=== PATIENT | male | born 1955 | race Caucasian/White ===

== ENCOUNTER 2020-09-13 10:52 | Outpatient (CLI) | payer MEDICARE, SELFPAY ==
--- NOTE | ~2020-09-13 | US_ITS ---
EXAMINATION: US carotid duplex BI DATE: 09/13/2020 11:57 INDICATION: Infarct in left internal capsule. Left arm tingling. TECHNIQUE: Grayscale, color Doppler, and pulsed Doppler images of the cervical carotid arteries were obtained. The degree of vessel stenosis is placed in one of the following categories: normal, <50%, 5 0-69%, >=70% but less than near-occlusion, near-occlusion, or total occlusion. Note that percent sten osis relative to normal distal artery lumen diameter is indirectly measured from velocity measurement s as described by Thor, et al. Radiology 2003; 229:340-346. COMPARISON: Ultrasound 05/02/2016 FINDINGS: RIGHT: The right common carotid artery (CCA) peak systolic velocity (PSV) is 98 cm/s. The right internal car otid artery (ICA) PSV is 64 cm/s. The right ICA end-diastolic velocity (EDV) is 23 cm/s. The right IC A/CCA PSV ratio is 0.7. Grayscale and color Doppler images yield an estimate of <50% diameter reducti on from plaque in the ICA. There is antegrade flow in the right vertebral artery. LEFT: The left CCA PSV is 92 cm/s. The left ICA PSV is 73 cm/s. The left ICA EDV is 22 cm/s. The left ICA/C CA PSV ratio is 0.8. Grayscale and color Doppler images yield an estimate of <50% diameter reduction from plaque in the ICA. There is antegrade flow in the left vertebral artery. IMPRESSION: 1. <50% stenosis in the right internal carotid artery. 2. <50% stenosis in the left internal carotid artery. Reviewed, dictated and finalized at location A. PRODUCTION WORKER
== END 2020-09-13 10:53 | disposition home or self-care (01) ==
PROVIDERS: PCP Family Medicine; Visit Provider Family Medicine
DX: R20.2 Paresthesia of skin (principal); I65.23 Occlusion and stenosis of bilateral carotid arteries
CPT/HCPCS: 93880

== ENCOUNTER 2023-04-09 03:23 | Day surgery (SDC) | payer MEDICARE, SELFPAY ==
[2023-03-30 09:09] VITALS: BMI 25.9
[2023-04-09 12:09] VITALS: BP 131/68; PULSE 58; RESP 16; TEMP 36.2; O2SAT 99
[2023-04-09] MEDS: LACTATED RINGERS 1,000 ML 150 ML IV CONT (12:18)
--- NOTE | 2023-04-09 12:26 | P.HP_ITS ---
History of Present Illness History of Present Illness Consent: Risks, benefits, and alternatives have been discussed and questions answered. Patient agrees to proceed with procedure. Chief complaint: neoplasm screening Narrative: Will Freedman is a 68 year old male Hepresents for screening colonoscopy. Patient's current weight appetite and bowel movements are normal. Patient denies abdominal pain. He has had no bleeding. Family history noncontributory. patient has been more than 10 years since screening colonoscopy. He presents today for evaluation. He does have a history of a CVA for which she is improved a great deal. Review of Systems Review of Systems: Review of systems noncontributory. PENDING SALE TO [facility] Past Medical History Medical History (Updated 04/09/23 @ 12:27 by Ramsey Montana MD) Aphasia, late effect of cerebrovascular disease Male erectile dysfunction, unspecified Occlusion and stenosis of bilateral carotid arteries Pure hypercholesterolemia, unspecified Social History Social History (Updated 12/24/22 @ 09:50 by Jennie Hammonds MA) Smoking status: Former smoker Tobacco type: cigarettes Alcohol intake: current Alcohol use details: occasional Substance use: never Substance use type: does not use Lack of Transportation: No Lack of Food: Never True Current Housing: I Have Housing Concerned About Future Housing: No Difficulty Paying Gas/Electric Bills: No Difficulty Paying for Meds: No Currently Unemployed: YES Education: Associate Degree Living arrangements: with family Occupation/Education: retired Gender identity (if verbalized by the patient): Male Sexual Orientation (if Verbalized by the Patient): Straight or Heterosexual Spiritual care concerns: No Meds Home Medications and Allergies Home Medications Medication Instructions Recorded Confirmed Type aspirin 81 mg tablet,delayed 81 mg PO DAILY 12/24/22 03/30/23 History release sildenafil 100 mg tablet 100 mg PO .COMPLEX 12/24/22 03/30/23 History atorvastatin 40 mg tablet 40 mg PO DAILY #90 tabs 01/13/23 03/30/23 Rx Allergies Allergy/AdvReac Type Severity Reaction Status Date / Time No Known Allergies Allergy Unknown Verified 04/09/23 12:04 Vital Signs Vital Signs - 24 hr 04/09/23 12:09 Temperature 97.2 F L Pulse Rate 58 L Respiratory Rate 16 Blood Pressure 131/68 Pulse Oximetry 99 Oxygen Delivery Room Air Exam Narrative: Physical exam reveals patient to be alert. Vital signs stable. HEENT exam is unremarkable. Patient is anicteric. Lungs are clear to auscultation and percussion. Heart is without murmur or extra sounds. Abdomen bowel sounds are present soft nontender with no organomegaly. Digital external rectal exam normal. Assessment and Plan Assessment and plan (1) Encounter for screening colonoscopy: Code(s): Z12.11 - Encounter for screening for malignant neoplasm of colon Status: Acute Assessment and Plan: Patient presents today for screening colonoscopy. Appears to be at average risk for colon polyps. Further recommendations may be given after endoscopy.
[2023-04-09] MEDS: SIMETHICONE ORAL SUSPENSION 20 MG/0.3 ML 30 ML BOTTLE 0.6 ML IRRIGATION (13:14)
[2023-04-09 13:22] VITALS: BP 105/59; PULSE 56; RESP 22; O2SAT 95
[2023-04-09 13:32] VITALS: BP 116/67; PULSE 56; RESP 22; O2SAT 100
[2023-04-09 13:42] VITALS: BP 117/70; PULSE 58; RESP 19; O2SAT 100
[2023-04-09 13:52] VITALS: BP 123/78; PULSE 53; RESP 19; O2SAT 99
== END 2023-04-09 14:04 | disposition home or self-care (01) ==
PROVIDERS: PCP Family Medicine; Visit Provider Internal Medicine Gastroenterology
PROC: 0DJD8ZZ Inspection of Lower Intestinal Tract, Via Natural or Artificial Opening Endoscopic (ICD-10-PCS; CPT 45378; principal; 2023-04-09 13:30)
DX: Z12.11 Encounter for screening for malignant neoplasm of colon (principal); D12.0 Benign neoplasm of cecum; D12.5 Benign neoplasm of sigmoid colon; K57.30 Diverticulosis of large intestine without perforation or abscess without bleeding; K64.8 Other hemorrhoids; I69.320 Aphasia following cerebral infarction; E78.00 Pure hypercholesterolemia, unspecified; Z87.891 Personal history of nicotine dependence; Z79.82 Long term (current) use of aspirin
CPT/HCPCS: 45385; 88305; J2704; J7120

== ENCOUNTER 2023-12-11 09:52 | Outpatient (CLI) | payer MEDICARE, SELFPAY | END 2023-12-11 09:53 | disposition home or self-care (01) | LOC: ANHAUDIO 09:55 | PROVIDERS: PCP Family Medicine; Visit Provider Family Medicine | DX: H90.3 Sensorineural hearing loss, bilateral (principal) | CPT/HCPCS: 92557; 92567 ==

== ENCOUNTER 2024-02-25 13:36 | Outpatient (CLI) | payer MEDICARE, SELFPAY ==
--- NOTE | ~2024-02-25 | US_ITS ---
Right shoulder area ULTRASOUND Ordering provider: Uriel Velasquez MD History: . R22.2 - Localized swelling, mass and lump, trunk . Comparison: None. FINDINGS/impression: Slightly echogenic/isoechoic area is seen in the right shoulder posteriorly which measures 1.7 x 0.8 x 1.4 cm which is most likely normal tissue. Follow-up advised.. An area in the posterior neck also shows complex echogenicity area with posterior enhancement which m easures 1.4 x 0.8 x 1.4 cm which may represent a lymph node or complex cyst. A lipoma is less likely. Follow-up and further evaluation advised. Reviewed, dictated and finalized at location A.
== END 2024-02-25 13:37 | disposition home or self-care (01) ==
LOC: ANHIMG 13:36
PROVIDERS: PCP Family Medicine; Visit Provider Family Medicine
DX: R22.2 Localized swelling, mass and lump, trunk (principal)
CPT/HCPCS: 76604

== ENCOUNTER 2024-04-01 12:12 | Outpatient (CLI) | payer MEDICARE, SELFPAY ==
--- NOTE | 2024-04-01 12:23 | ECG_ITS ---
Test Date: 2024-04-01 12:27:45 Measurements Intervals [place] Rate: 45 P: 57 WA: 179 QRS: 10 QRSD: 117 T: 21 QT: 417 QTc: 362 Interpretive Statements SINUS BRADYCARDIA POSSIBLE LEFT ATRIAL ENLARGEMENT [-0.1mV P WAVE IN V1/V2] MODERATE INTRAVENTRICULAR CONDUCTION DELAY [110+ ms QRS DURATION] No previous ECG available for comparison Electronically Signed On 04-02-2024 14:23:59 CDT by Valentin Conroy M.D.
== END 2024-04-01 12:13 | disposition home or self-care (01) ==
PROVIDERS: PCP Family Medicine; Visit Provider Surgery
DX: Z01.818 Encounter for other preprocedural examination (principal); E78.00 Pure hypercholesterolemia, unspecified; R00.1 Bradycardia, unspecified
CPT/HCPCS: 93005

== ENCOUNTER 2024-04-06 02:06 | Day surgery (SDC) | payer MEDICARE, SELFPAY ==
[2024-04-01 09:46] VITALS: BMI 27.3
--- NOTE | 2024-04-01 10:04 | PC.NURSE ---
Report to the Outpatient Waiting Room, entrance under the green pavilion located off [facility], at time _11:30AM_ on date __04/06/24_. Planned Procedure Time: ___1:30PM .? Time changes happen often and if your time is changed the preop area will call you the afternoon before. - You and your visitor will be asked to self-screen and do not enter if you have any COVID symptoms. Please call surgeon if you need to reschedule. - A mask is optional within the hospital at this time. Patients may have clear liquids (water, carbonated beverages, clear teas, apple juice) until 3 hours prior to surgery with a maximum of 20 ounces. - No food from midnight until time of surgery and no smoking. Take only the following medications with a SIP of water on the morning of surgery: NONE DO NOT STOP ANY OF YOUR OTHER PRESCRIPTION MEDICATIONS PRIOR TO SURGERY EXCEPT THE FOLLOWING Medications to discontinue per physician ____HOLD ALL VITAMINS/SUPPLEMENTS 3 DAYS PRE-OP PER ANESTHESIA Date to take last dose 04/02/24 Please no make-up, nail prydeinig, hairspray, perfume, deodorant, or body powder the day of surgery.? No jewelry (including any body piercings) or valuables the day of surgery, leave them at home.? Please take a shower or bath the night before, or the morning of, surgery with an antibacterial soap.? Wear comfortable, loose fitting clothing.? - Jewelry must be removed prior to entering the operating room.? Rings and piercings that are not removed may be cut off. - The hospital will not accept responsibility for valuables.? - Please leave all valuables, including medications, at home the day of surgery. If you are going home after surgery, a licensed otr owner operator truck driver must drive you home.? - NO public transportation without another adult if you receive anesthesia. - We recommend that an adult stay with you for 24 hours following discharge. - We also recommend that you do not drive, make important decision, drink alcoholic beverages, or take any drugs that were not prescribed by your health care provider for at least 24 hours after your discharge time. Follow any additional instructions given to you from your surgeon. Telephone instructions given to ____PATIENT and asked if any additional questions and then verbalized understanding. Patient advised to call surgeon office or pre surgery nurse liaison [phone] if any additional questions.
[2024-04-06] VITALS (7 sets, daily range): BP systolic 104–142; BP diastolic 58–75; PULSE 48–80; RESP 16–20; TEMP 36.2; O2SAT 99–100
--- NOTE | 2024-04-06 09:46 | WPDHPUPDATE1 ---
History and Physical Update Update Date/Time: 04/06/24 09:46 History and Physical has been reviewed, including an updated exam of the patient. There are NO changes in the patient's condition. Risks, benefits, and alternatives have been discussed and questions answered. Patient agrees to proceed with procedure.
[2024-04-06] MEDS: LACTATED RINGERS 1,000 ML 30 ML IV CONT (11:20)
--- NOTE | 2024-04-06 12:22 | WPDANESEPPF ---
Anes - Initial Pre Proc Eval Procedure: Operation Date: 04/06/24 13:30 Proposed Procedures p Excisional Biopsy of Posterior Neck Mass and Right Posterior Shoulder Mass - Heike Ramirez MD Date/Time: 04/06/24 12:22 Surgeon: Heike Ramirez MD Pre Op Diagnosis: posterior neck mass and rt shoulder mass Patient Data Age: 69 Gender: M Height: 1.75 m Weight: 84.75 kg Last Vital Signs Temp 36.2 C L 04/06/24 10:57 Pulse 48 L 04/06/24 10:57 Resp 18 04/06/24 10:57 BP 127/74 04/06/24 10:57 Pulse Ox 99 04/06/24 10:57 O2 Del Method Room Air 04/06/24 10:57 Allergies Allergy/AdvReac Type Severity Reaction Status Date / Time No Known Allergies Allergy Unknown Verified 04/01/24 09:43 Home Medications Medication Instructions Recorded Confirmed Type aspirin 81 mg tablet,delayed 81 mg PO DAILY 12/24/22 04/01/24 History release sildenafil 100 mg tablet 100 mg PO .COMPLEX PRN Sexual 12/24/22 04/01/24 History Activity magnesium 250 mg tablet 250 mg PO DAILY 06/04/23 04/01/24 History atorvastatin 40 mg tablet See Rx Instructions .Route 03/24/24 04/01/24 Rx .COMPLEX #90 tabs Patient hx anesthesia problems: none Family hx anesthesia problems: none Results Review: All pre-operative results and documents have been reviewed as part of the pre-operative evaluation. [facility] Past Medical History Medical History Aphasia, late effect of cerebrovascular disease Male erectile dysfunction, unspecified Occlusion and stenosis of bilateral carotid arteries Personal history of colonic polyps Pure hypercholesterolemia, unspecified Surgical History Surgical History History of appendectomy 2008 History of facial surgery facial fracture repair 2010 Family History Family History Father No problems noted. Mother Breast cancer Heart disease Social History Social History Smoking status: Former smoker Tobacco type: cigarettes Alcohol intake: current Drinks per week: 2 Alcohol use details: occasional Substance use: never Substance use type: does not use Do You Feel Safe in your Home?: Yes Lack of Transportation: No Lack of Food: Never True Current Housing: I Have Housing Concerned About Future Housing: No Difficulty Paying Gas/Electric Bills: No Difficulty Paying for Meds: No Currently Unemployed: YES Education: Associate Degree Living arrangements: with family Additional living arrangements comments: Occupation/Education: retired Gender identity (if verbalized by the patient): Male Sexual Orientation (if Verbalized by the Patient): Straight or Heterosexual Spiritual care concerns: No Anes - Eval Final PreProcedure Day of Procedure 04/06/24 12:22 Patient weight: overweight Heart: regular rate and rhythm Lungs: clear to auscultation Airway: Mallampati scale class II Neurological: alert and oriented Last oral intake: >/= 8 hours ASA classification: III Emergent: no Anesthetic plan: proceed Anesthesia type and monitoring: general LMA and standard monitoring Results Review: All pre-operative results and documents have been reviewed as part of the pre-operative evaluation. Informed Consent: The patient's anesthetic plan and its attendant risks and benefits were discussed with the patient/family/POA. Questions were solicited and answers provided to the satisfaction of the patient/family/POA.
[2024-04-06] MEDS: ceFAZolin 2 GM/D5W 50 ML 2 GM/50 ML BAG IVPB (13:18)
--- NOTE | 2024-04-06 13:56 | P.OP_ITS ---
Procedure Note - Detailed Date of Procedure 04/06/24 Pre-op Diagnosis posterior neck mass and rt shoulder mass Post-op Diagnosis Same Procedure Performed excisional biopsy posterior neck cystic mass measuring 3 x 2 cm, excisional biopsy right posterior shoulder measuring 5 x 3 cm Surgeon Heike Ramirez MD Anesthesia MAC and Local Indications The patient is old male presenting to the office with a posterior neck cystic mass. This mass has been infected in the past and the patient would like excision at this time. The patient also notes a growing subcutaneous mass in his right posterior shoulder. Findings Cystic mass in the posterior neck measuring 3 x 2 cm most consistent with sebaceous cyst, right posterior shoulder subcutaneous mass measuring 5 x 3 cm most consistent with lipoma Description of Procedure The patient was taken the operating room placed in the lateral position. After adequate induction of MAC anesthesia, the patient was prepped and draped in the normal sterile fashion. A time-out was then done to verify the patient's identity, as well as the procedure being performed. Began by localizing these 2 areas in the right posterior shoulder and posterior neck. Once locally anesth etized, I made an incision over the mass in the right posterior shoulder. This was carried down through the dermis into the subcutaneous tissue. At this point, a subtle multilobular lipoma was noted in the subcutaneous tissue. The posterior extent of this did go on top of the fascia however did not extend into the fascia muscle. I then was able to excise this mass in full. The mass was noted to measure approximately 5 x 3 cm. The mass will be sent to pathology for further review. I then gained hemostasis with the Bovie cautery. The cavity was washed out. I then closed the subcutaneous tissue with 3-0 Vicryl suture. The skin was closed with 4-0 Monocryl subcuticular suture. Dermabond was placed on the wound. I then made an elliptical incision around the posterior neck cystic mass. This was carried down through the dermis and into the subcutaneous tissue. A well-circumscribed sebaceous cyst was noted at this point. There was noted to be an area of perforation that was extruding some sebaceous material. I was able to excise this mass in full. It will once again be sent to pathology for further review. The mass measured 3 x 2 cm. I then copiously irrigated the cavity and hemostasis was once again gained with the Bovie cautery. I then closed the incision with interrupted 3-0 nylon vertical mattress sutures. Sterile dressing was then placed. The patient tolerated these procedures well and was alert and awake in the operating room postoperatively. He will be transferred to the recovery room in stable condition. Estimated Blood Loss 10 Drains No Packing No Pathology Yes Complications No immediate complications Condition Stable Disposition PACU [facility] Billing Surgery - Charge Forward: Surgery Billing
[2024-04-06] MEDS: BUPIVACAINE/EPINEPHRINE 0.5% 10 ML VIAL 30 ML INFILTRATE (14:12)
--- NOTE | 2024-04-06 15:25 | SUR.PHASEII ---
1515 - BERNARD Tom assessing pt's incision site. pressure dressing applied as instructed. pt tolerating well
--- NOTE | 2024-04-06 16:02 | SUR.PHASEII ---
1545 - BERNARD Tom reassessing pt's incision site.
== END 2024-04-06 16:20 | disposition home or self-care (01) ==
PROVIDERS: PCP Family Medicine; Visit Provider Surgery
PROC: (CPT 24071; principal; 2024-04-06 13:30)
DX: L72.0 Epidermal cyst (principal); D17.21 Benign lipomatous neoplasm of skin and subcutaneous tissue of right arm; E78.00 Pure hypercholesterolemia, unspecified; Z79.82 Long term (current) use of aspirin; Z87.891 Personal history of nicotine dependence
CPT/HCPCS: 24071; 11426; 88304; A9270; J0690; J1100; J2250; J2405; J2704; J3010; J7120

== ENCOUNTER 2024-07-08 15:13 | Outpatient (CLI) | payer MEDICARE, SELFPAY ==
--- NOTE | ~2024-07-08 | CT_ITS ---
EXAMINATION: CT abdomen pelvis wo con DATE: 07/08/2024 15:34 INDICATION: Lower abdominal pain, unspecified. TECHNIQUE: Computed tomography (CT) of the abdomen and pelvis was performed without intravenous contr ast. Automated exposure control and iterative reconstruction technique were employed. The dose-length product was 588.47 mGy-cm. COMPARISON: CT abdomen and pelvis 06/08/2021 FINDINGS: The visualized portions of the lung bases are clear without pneumonia or pleural effusion. The heart size is normal. No pericardial effusion. There are cysts in the liver measuring up to 8 mm. The gallbladder, spleen, pancreas, and adrenal glands are normal. There are cysts in the kidneys bobo suring up to 3.2 cm on the right. There is a 2 mm cyst in right kidney. The prostate is mildly enlarg ed. There is diverticulosis of the colon without evidence of diverticulitis. There are no dilated loo ps of bowel. The appendix is normal. There are no pathologically enlarged lymph nodes. There is no fr ee intraperitoneal fluid. There is severe thoracic and lumbar spondylosis. Thoracolumbar levocurvatur e is noted. IMPRESSION: 1. No etiology for the patient's symptoms. Reviewed, dictated and finalized at location A. ROUNDER
== END 2024-07-08 15:14 | disposition home or self-care (01) ==
PROVIDERS: PCP Family Medicine; Visit Provider Family Medicine
DX: R10.30 Lower abdominal pain, unspecified (principal)
CPT/HCPCS: 74176

== ENCOUNTER 2024-10-10 11:06 | Outpatient (CLI) | payer MEDICARE, SELFPAY ==
--- NOTE | ~2024-10-10 | XR_ITS ---
XR cervical spine 4-5V Ordering provider: Judy Crowder PA-C History: . M54.2 - Cervicalgia . Comparison: None. FINDINGS: VERTEBRAL BODIES: Retrolisthesis at the level of C3-C4. Otherwise, Normal height and alignment. No vi sible fracture or subluxation. The dens is intact. DISK SPACES: Slight narrowing at the level of C5-C6 and C6-C7. Otherwise, Well maintained. PARASPINOUS SOFT TISSUES: No prevertebral soft tissue swelling. IMPRESSION: No acute osseous abnormality cervical spine. Retrolisthesis at the level of C3-C4. Slight narrowing of the level of C5-C6 and C6-C7. Reviewed, dictated and finalized at location A.
== END 2024-10-10 11:07 | disposition home or self-care (01) ==
PROVIDERS: PCP Family Medicine
DX: M54.2 Cervicalgia (principal)
CPT/HCPCS: 72050